=== PATIENT | female | born 1970 | race Caucasian/White ===

== ENCOUNTER 2016-03-17 21:09 | Emergency (ER) | payer BC, OTHER ==
[2016-03-17] MEDS ORDERED: NORCO 5/325 MG PO ONE ×2 (21:34→22:38)
--- NOTE | 2016-03-17 21:40 | ERPHSYRPT ---
- History of Present Illness Time Seen by Provider: 03/17/16 21:27 Source: patient Exam Limitations: no limitations Patient Subjective Stated Complaint: pt states this morning she missed a step going outside and hurt her lt heel. states pain has made it difficult to walk. Triage Nursing Assessment: pt alert and oriented. answers questins approp. repirations nonlabored with lungs cta. skin pink warm and dry. air cast to lt foot on pt's arrival. pt sttes she had it at home from previous injury to her other foot. cap refill and pedal pusle to lt foot wnl. some swelling and tenderness noted to lt heel area. Physician History: ABOUT 11.5 HOURS AGO AT HOME PT WAS WALKING DOWN HER FRONT PORCH, MISSED THE LAST STEP AND STEPPED FLAT ON HER LEFT FOOT WITH RESULTANT LEFT HEEL PAIN; DENIES NUMBNESS OF THE LEFT TOES; ADMITS TO PRIOR LEFT FOOT HAIRLINE FRACTURE 2 YEARS AGO IN THE HEEL OR ARCH. Allergies/Adverse Reactions: No Known Drug Allergies Allergy (Unverified 03/17/16 21:27) Home Medications: Buspirone HCl [Buspar] 30 mg PO BID 03/17/16 [History] Omeprazole 20 MG [Prilosec 20 mg] 40 mg PO BID 03/17/16 [History] Pregabalin [Lyrica 150Mg] 150 mg PO BID 03/17/16 [History] Hx Tetanus, Diphtheria Vaccination/Date Given: Yes Hx Influenza Vaccination/Date Given: Yes Hx Pneumococcal Vaccination/Date Given: Yes Immunizations Up to Date: Yes - Review of Systems Musculoskeletal: Other (LEFT HEEL PAIN) - Past Medical History Musculoskeletal History: Fibromyalgia, Rheumatoid Arthritis Psycho-Social History: Anxiety, Depression Other Medical History: chronic back pain - Past Surgical History Past Surgical History: Yes Musculoskeletal: Orthopedic Surgery Female Surgical History: Hysterectomy Other Surgical History: bilat reconst hand surgery - Social History Smoking Status: Never smoker Exposure to second hand smoke: Yes Drug Use: none Patient Lives Alone: No - Female History Hx Last Menstrual Period: partial hyster - Nursing Vital Signs Nursing Vital Signs: Initial Vital Signs Temperature 97.1 F Temperature Source Oral Pulse Rate 80 Respiratory Rate 18 Blood Pressure [Right Arm] 128/73 Pain Intensity 10 - Physical Exam General Appearance: alert Hips Exam: left: normal range of motion Legs Exam: left leg: normal range of motion Knees Exam: left knee: normal range of motion Ankle Exam: left ankle: normal range of motion Foot Exam: left foot: normal range of motion, soft tissue tenderness (MILD LEFT HEEL TENDERNESS WITH MINIMAL EDEMA WITHOUT ERYTHEMA.) Neuro/Tendon Exam: normal sensation, normal motor functions Mental Status Exam: alert, cooperative Skin Exam: warm, dry SpO2 Interpretation: normal SpO2: 98 Oxygen Delivery: Room Air - Course Nursing assessment & vital signs reviewed: Yes - Radiology Exams Left Foot X-ray Interpretation: Interpreted by me (HAIRLINE FX HEEL SPUR OF LEFT FOOT) Ordered Tests: Active Orders 24 hr Category Date Time Status Crutches STAT Care 03/17/16 21:34 Active FOOT (MINIMUM 3 VIEWS) Stat Exams 03/17/16 21:34 Taken Medication Summary Discontinued Medications Generic Name Dose Route Start Last Admin Trade Name Freq PRN Reason Stop Dose Admin Acetaminophen/Hydrocodone Bitart 2 tab 03/17/16 21:34 03/17/16 21:44 [place] 5/325 Mg PO 03/17/16 21:35 2 tab STAT ONE Administration Acetaminophen/Hydrocodone Bitart Confirm 03/17/16 21:43 [place] 5/325 Mg Administered 03/17/16 21:44 Dose 2 tab .ROUTE .STK-MED ONE - Departure Time of Disposition: 22:37 Departure Disposition: Home Clinical Impression: HAIRLINE FX OF LEFT HEEL SPUR Condition: Fair Critical Care Time: No Instructions: Foot Fracture Additional Instructions: FOLLOW UP WITH MANAGER QA OF CHOICE TOMORROW. USE CRUTCHES FOR AMBULATION. ELEVATE LEFT FOOT ABOVE HEART LEVEL FOR 24 HOURS. Prescriptions: Naproxen [Naprosyn] 500 mg PO Q12H PRN PRN #20 tablet PRN Reason: Pain
[2016-03-17] MEDS ORDERED: NORCO 5/325 MG ONE ×2 (21:43→22:41)
[2016-03-17 22:54] VITALS: BP 143/70; PULSE 70; O2SAT 100
--- NOTE | 2016-03-18 08:41 | XRAY ---
Indication: Heel pain following fall. Comparison: None 3 nonweightbearing views of the left foot demonstrates small plantar heel spur and tiny cuboid accessory ossicle. No other bony, articular, or soft tissue abnormalities.
== END 2016-03-17 22:54 | disposition home or self-care (01) ==
LOC: ED 21:09
DX: M77.32 Calcaneal spur, left foot (principal); M79.672 Pain in left foot; W10.9XXA Fall (on) (from) unspecified stairs and steps, initial encounter
CPT/HCPCS: 73630; 99283

== ENCOUNTER 2017-03-24 12:59 | Emergency (ER) | payer OTHER ==
[2017-03-24] MEDS ORDERED: BENADRYL 50 MG/ML IV ONE (13:19)
[2017-03-24] MEDS ORDERED: Sodium Chloride 0.9% 1000 ML 1,000 ML IV STA (13:19)
[2017-03-24] MEDS ORDERED: Reglan 10 MG/2 ML IV ONE (13:19)
--- NOTE | 2017-03-24 13:24 | ERPHSYRPT ---
- History of Present Illness Time Seen by Provider: 03/24/17 13:11 Source: patient, family () Patient Subjective Stated Complaint: pt here for a headache for 3 days now. pt has hx of headaches Triage Nursing Assessment: pt walked in, resp eay, skin w/d/p. nausea, light sensitive Physician History: CC: headache Hx: 46 y/o [facility] patient with hx of migraine headaches and fibromylagia. She also has mild renal insuff. She noted gradually worsened headache since Friday or Friday (2-3 days) which started while cleaning a smoker's home. Smoke has been a trigger for her migraines in the past. She has nausea but more photophobia. No fever or chills. Neck feels tight. No N/T/W. No injury. Last headache this bad was in 2014. She has tried lotions, APAP without relief. Severity of Pain-Max: severe Severity of Pain-Current: severe Allergies/Adverse Reactions: No Known Drug Allergies Allergy (Verified 03/24/17 13:13) Home Medications: Buspirone HCl [Buspar] 60 mg PO BID 03/17/16 [History] Omeprazole 20 MG [Prilosec 20 mg] 40 mg PO BID 03/17/16 [History] Hx Tetanus, Diphtheria Vaccination/Date Given: Yes Hx Influenza Vaccination/Date Given: Yes Hx Pneumococcal Vaccination/Date Given: Yes Immunizations Up to Date: Yes - Review of Systems Constitutional: No Fever, No Chills Eyes: Photophobia, No Vision Changes Ears, Nose, & Throat: No Symptoms Respiratory: No Symptoms Cardiac: No Symptoms Abdominal/Gastrointestinal: Nausea, No Abdominal Pain, No Vomiting Musculoskeletal: No Back Pain Skin: No Rash Neurological: Headache, No Dizziness, No Focal Weakness, No Parasthesia, No Seizure All Other Systems: Reviewed and Negative - Past Medical History Pertinent Past Medical History: Yes Musculoskeletal History: Fibromyalgia, Rheumatoid Arthritis Psycho-Social History: Anxiety, Depression Other Medical History: chronic back pain - Past Surgical History Past Surgical History: Yes Musculoskeletal: Orthopedic Surgery Female Surgical History: Hysterectomy Other Surgical History: bilat reconst hand surgery - Social History Smoking Status: Never smoker Exposure to second hand smoke: Yes Drug Use: none Patient Lives Alone: No - Female History Hx Last Menstrual Period: post Hx Now: No - Nursing Vital Signs Nursing Vital Signs: Initial Vital Signs Temperature 97.8 F 02/05/18 13:05 Pulse Rate 76 03/24/17 13:05 Respiratory Rate 18 03/24/17 13:05 Blood Pressure 161/101 03/24/17 13:05 O2 Sat by Pulse Oximetry 99 03/24/17 13:05 Pain Scale Pain Intensity 10 - Physical Exam General Appearance: alert Eye Exam: PERRL/EOMI Ears, Nose, Throat Exam: normal ENT inspection, moist mucous membranes Neck Exam: normal inspection, non-tender, supple, No meningismus Respiratory Exam: normal breath sounds, lungs clear Cardiovascular Exam: regular rate/rhythm Gastrointestinal/Abdominal Exam: soft, No tenderness, No distention Extremity Exam: normal inspection, normal range of motion Mental Status Exam: alert, oriented x 3, cooperative veterinarian Exam: normal hearing, normal speech, PERRL Motor/Sensory Exam: no motor deficit, no sensory deficit Skin Exam: warm, dry, No rash SpO2 Interpretation: normal SpO2: 99 Oxygen Delivery: Room Air - Course Nursing assessment & vital signs reviewed: Yes Ordered Tests: Active Orders 24 hr Category Date Time Status IV Insertion STAT Care 03/24/17 13:19 Active Medication Summary Generic Name Dose Route Start Last Admin Trade Name Freq PRN Reason Stop Dose Admin Sodium Chloride 1,000 mls @ 999 mls/hr 03/24/17 13:19 03/24/17 13:40 Sodium Chloride 0.9% 1000 Ml IV 03/24/17 14:19 999 mls/hr .Q1H1M STA Administration Discontinued Medications Generic Name Dose Route Start Last Admin Trade Name Freq PRN Reason Stop Dose Admin Diphenhydramine HCl 25 mg 03/24/17 13:19 03/24/17 13:39 Benadryl 50 Mg/Ml IV 03/24/17 13:20 25 mg STAT ONE Administration Diphenhydramine HCl Confirm 03/24/17 13:38 Benadryl 50 Mg/Ml Administered 03/24/17 13:39 Dose 50 mg .ROUTE .STK-MED ONE Sodium Chloride Confirm 03/24/17 13:39 Sodium Chloride 0.9% 1000 Ml Administered 03/24/17 13:40 Dose 1,000 mls @ ud .ROUTE .STK-MED ONE Metoclopramide HCl 10 mg 03/24/17 13:19 03/24/17 13:39 Reglan 10 Mg/2 Ml IV 03/24/17 13:20 10 mg STAT ONE Administration Metoclopramide HCl Confirm 03/24/17 13:38 Reglan 10 Mg/2 Ml Administered 03/24/17 13:39 Dose 10 mg .ROUTE .STK-MED ONE - Progress Progress Note: 03/24/17 14:15 FOSTER improving after benadryl, reglan, IVF. She is fidgety from her arthritis. She states and is ready to go home. Will release with headache instr. Counseled pt/family regarding: diagnosis, need for follow-up, rad results - Departure Time of Disposition: 14:16 Departure Disposition: Home Clinical Impression: Migraine headache Condition: Stable Critical Care Time: No Referrals: [facility]OSPITAL,'[facility] [Primary Care Provider] - Instructions: Headache, Adult (DC) Additional Instructions: HEADACHE 1. After discharge from the emergency department, you should rest at home in a cool, dark, quiet place for 12-24 hours. 2. If any of the following signs or symptoms are noticed, you should be re- evaluated right away: A. Visual changes B. Stiff Neck C. Change in quality or location of pain D. Fever E. Recurrent vomiting 3. If pain medications were prescribed or given, they may cause drowsiness. No driving today and stay with family. Follow up at [place]. Return for problems or concerns.
[2017-03-24] MEDS ORDERED: Reglan 10 MG/2 ML ONE (13:38)
[2017-03-24] MEDS ORDERED: BENADRYL 50 MG/ML ONE (13:38)
[2017-03-24] MEDS ORDERED: Sodium Chloride 0.9% 1000 ML 1,000 ML ONE (13:39)
[2017-03-24 14:41] VITALS: BP 142/90; PULSE 78; O2SAT 98
== END 2017-03-24 14:41 | disposition home or self-care (01) ==
LOC: ED 12:59
DX: G43.909 Migraine, unspecified, not intractable, without status migrainosus (principal); N28.9 Disorder of kidney and ureter, unspecified
CPT/HCPCS: 36000; 96360; 96374; 96375; 99284; J1200

== ENCOUNTER 2018-02-10 14:53 | Emergency (ER) | payer OTHER ==
[2018-02-10] MEDS ORDERED: Phenergan 25 MG INJ IV ONE (16:19)
[2018-02-10] MEDS ORDERED: Sodium Chloride 0.9% 1000 ML 1,000 ML IV STA (16:19)
--- NOTE | 2018-02-10 16:19 | ERPHSYRPT ---
- History of Present Illness Time Seen by Provider: 02/10/18 16:16 Source: patient Exam Limitations: no limitations Patient Subjective Stated Complaint: here for loose stools for 6 weeks with vomiting off and on as well, having 10 stools a day, vomiting 3-4 times , pt is able to eat pizza last night Triage Nursing Assessment: pt alert, resp easy, skin w/d/p. no edema noted, abd soft tender to left side of abd Physician History: The patient is a 47-year-old female complaining of diarrhea of up to 10-12 who was daily for 6 weeks. For the last week she has been vomiting every time she eats. She denies any weight loss. She's had on and off lightheadedness. She denies abdominal pain. She [facility] and cannot be [facility] until [facility]. She has no local doctor. Her past medical history is significant for GERD and fibromyalgia. Timing/Duration: week(s) (6), constant, sudden Severity: moderate Modifying Factors: Improves With: eating Associated Symptoms: nausea, vomiting, other (diarrhea) Allergies/Adverse Reactions: No Known Drug Allergies Allergy (Verified 02/10/18 15:16) Home Medications: Buspirone HCl [Buspar] 60 mg PO BID 03/17/16 [History] Omeprazole 20 MG [Prilosec 20 mg] 40 mg PO BID 03/17/16 [History] Topiramate 100 mg [Topamax 100 MG] 100 mg DAILY 02/10/18 [History] clonazePAM [Klonopin] 0.5 mg DAILY 02/10/18 [History] Hx Tetanus, Diphtheria Vaccination/Date Given: Yes Hx Influenza Vaccination/Date Given: Yes Hx Pneumococcal Vaccination/Date Given: Yes Immunizations Up to Date: Yes - Review of Systems Constitutional: Weakness Eyes: No Symptoms Ears, Nose, & Throat: No Symptoms Respiratory: No Cough, No Dyspnea Cardiac: No Chest Pain, No Edema, No Syncope Abdominal/Gastrointestinal: Nausea, Vomiting, Diarrhea Genitourinary Symptoms: No Dysuria Musculoskeletal: No Back Pain, No Neck Pain Skin: No Rash Neurological: No Dizziness, No Focal Weakness, No Sensory Changes Psychological: No Symptoms Endocrine: No Symptoms Hematologic/Lymphatic: No Symptoms Immunological/Allergic: No Symptoms All Other Systems: Reviewed and Negative - Past Medical History Pertinent Past Medical History: Yes Musculoskeletal History: Fibromyalgia, Rheumatoid Arthritis GI Medical History: GERD Psycho-Social History: Anxiety, Depression Other Medical History: chronic back pain - Past Surgical History Past Surgical History: Yes Musculoskeletal: Orthopedic Surgery Female Surgical History: Hysterectomy Other Surgical History: bilat reconst hand surgery - Social History Smoking Status: Never smoker Exposure to second hand smoke: No Drug Use: none Patient Lives Alone: No - Female History Hx Last Menstrual Period: 2009 Hx Now: No - Nursing Vital Signs Nursing Vital Signs: Initial Vital Signs Temperature 98.0 F 02/10/18 15:09 Pulse Rate 61 02/10/18 15:09 Respiratory Rate 16 02/10/18 15:09 Blood Pressure 121/76 02/10/18 15:09 O2 Sat by Pulse Oximetry 97 02/10/18 15:09 Pain Scale Pain Intensity 0 - Physical Exam General Appearance: no apparent distress, alert Eye Exam: PERRL/EOMI, eyes nml inspection Ears, Nose, Throat Exam: normal ENT inspection, TMs normal, pharynx normal, moist mucous membranes Neck Exam: normal inspection, non-tender, supple, full range of motion Respiratory Exam: normal breath sounds, lungs clear, No respiratory distress Cardiovascular Exam: regular rate/rhythm, normal heart sounds, normal peripheral pulses Gastrointestinal/Abdomen Exam: soft, other (hyperactive BS) Pelvic Exam: not done Rectal Exam: not done Back Exam: normal inspection, normal range of motion, No CVA tenderness, No vertebral tenderness Extremity Exam: normal inspection, normal range of motion, pelvis stable Neurologic Exam: alert, oriented x 3, cooperative, normal mood/affect, nml cerebellar function, nml station & gait, sensation nml, No motor deficits Skin Exam: normal color, warm, dry, No rash Lymphatic Exam: No adenopathy SpO2 Interpretation: normal SpO2: 98 Oxygen Delivery: Room Air Ordered Tests: Active Orders 24 hr Category Date Time Status Clean Catch Urine Specimen STAT Care 02/10/18 16:19 Active IV Insertion STAT Care 02/10/18 16:19 Active Orthostatic Vital Signs STAT Care 02/10/18 16:19 Active ABDOMEN AND PELVIS W/0 CONTRAS [CT] Stat Exams 02/10/18 16:20 Taken BLOOD CULTURE Stat Lab 02/10/18 17:18 Ordered CBC W DIFF Stat Lab 02/10/18 16:30 Completed CMP Stat Lab 02/10/18 16:30 Completed LIPASE Stat Lab 02/10/18 16:30 Completed Lactic Acid Stat Lab 02/10/18 17:02 Completed Occult Blood,Stool Other Stat Lab 02/10/18 16:32 Completed UA W/RFX UR CULTURE Stat Lab 02/10/18 17:10 Completed Medication Summary Discontinued Medications Generic Name Dose Route Start Last Admin Trade Name Bernie PRN Reason Stop Dose Admin Sodium Chloride 1,000 mls @ 999 mls/hr 02/10/18 16:19 02/10/18 17:14 Sodium Chloride 0.9% 1000 Ml IV 02/10/18 17:19 999 mls/hr .Q1H1M STA Administration Sodium Chloride Confirm 02/10/18 17:07 Sodium Chloride 0.9% 1000 Ml Administered 02/10/18 17:08 Dose 1,000 mls @ ud .ROUTE .STK-MED ONE Promethazine HCl 12.5 mg 02/10/18 16:19 02/10/18 17:13 Phenergan 25 Mg Inj IV 02/10/18 16:20 12.5 mg STAT ONE Administration Promethazine HCl Confirm 02/10/18 17:07 Phenergan 25 Mg Inj Administered 02/10/18 17:08 Dose 25 mg .ROUTE .STK-MED ONE Lab/Rad Data: Laboratory Result Diagrams 02/10/18 16:30 02/10/18 16:30 Laboratory Results 02/10/18 02/10/18 02/10/18 Range/Units 17:10 17:08 17:02 WBC (4.0-10.5) K/mm3 RBC (4.1-5.4) M/mm3 Hgb (12.0-16.0) gm/dl Hct (35-47) % MCV (78-100) fl MCH (26-32) pg MCHC (32-36) g/dl RDW (11.5-14.0) % Plt Count (150-450) K/mm3 MPV (6-9.5) fl Gran % (36.0-66.0) % Eos # (Auto) (0-0.5) Absolute Lymphs (auto) (1.0-4.6) Absolute Monos (auto) (0.0-1.3) Lymphocytes % (24.0-44.0) % Monocytes % (0.0-12.0) % Eosinophils % (0.00-5.0) % Basophils % (0.0-0.4) % Absolute Granulocytes (1.4-6.9) Basophils # (0-0.4) Sodium (137-145) mmol/L Potassium (3.5-5.1) mmol/L Chloride (98-107) mmol/L Carbon Dioxide (22-30) mmol/L Anion Gap (5-15) MEQ/L BUN (7-17) mg/dL Creatinine (0.52-1.04) mg/dL Estimated GFR ML/MIN Glucose (74-106) mg/dL Lactic Acid 1.2 (0.4-2.0) Calcium (8.4-10.2) mg/dL Total Bilirubin (0.2-1.3) mg/dL AST (14-36) U/L ALT (0-35) U/L Alkaline Phosphatase (38-126) U/L Serum Total Protein (6.3-8.2) g/dL Albumin (3.5-5.0) g/dL Lipase (23-300) U/L Urine Color YELLOW (YELLOW) Urine Appearance SLIGHTLY CLOUDY (CLEAR) Urine pH 7.0 (5-6) Ur Specific [place] 1.015 (1.005-1.025) Urine Protein NEGATIVE (Negative) Urine Ketones NEGATIVE (NEGATIVE) Urine Blood NEGATIVE (0-5) Vasquez/ul Urine Nitrite NEGATIVE (NEGATIVE) Urine Bilirubin NEGATIVE (NEGATIVE) Urine Urobilinogen NEGATIVE (0-1) mg/dL Ur Leukocyte Esterase NEGATIVE (NEGATIVE) Urine WBC (Auto) 0-2 (0-5) /HPF Urine RBC (Auto) NONE (0-2) /HPF U Epithel Cells (Auto) RARE (FEW) /HPF Urine Bacteria (Auto) RARE (NEGATIVE) /HPF Other Casts (Auto) NEGATIVE (NEGATIVE) /LPF Urine Mucus (Auto) SLIGHT (NEGATIVE) /HPF Urine Culture Reflexed NO (NO) Urine Glucose NEGATIVE (NEGATIVE) mg/dL Stool Occult Blood (Negative) Stl C. diff Tox B Gene NEGATIVE (NEGATIVE) C.difficile 027-[id number] PRESUMPTIVE NEGATIVE (NEGATIVE) 02/10/18 02/10/18 02/10/18 Range/Units 16:32 16:30 16:30 WBC 8.7 (4.0-10.5) K/mm3 RBC 5.42 H (4.1-5.4) M/mm3 Hgb 14.8 (12.0-16.0) gm/dl Hct 46.9 (35-47) % MCV 86.5 (78-100) fl MCH 27.3 (26-32) pg MCHC 31.6 L (32-36) g/dl RDW 14.7 H (11.5-14.0) % Plt Count 236 (150-450) K/mm3 MPV 10.8 H (6-9.5) fl Gran % 63.5 (36.0-66.0) % Eos # (Auto) 0.15 (0-0.5) Absolute Lymphs (auto) 2.27 (1.0-4.6) Absolute Monos (auto) 0.74 (0.0-1.3) Lymphocytes % 26.1 (24.0-44.0) % Monocytes % 8.5 (0.0-12.0) % Eosinophils % 1.7 (0.00-5.0) % Basophils % 0.2 (0.0-0.4) % Absolute Granulocytes 5.52 (1.4-6.9) Basophils # 0.02 (0-0.4) Sodium 144 (137-145) mmol/L Potassium 4.7 (3.5-5.1) mmol/L Chloride 107 (98-107) mmol/L Carbon Dioxide 26 (22-30) mmol/L Anion Gap 15.3 H (5-15) MEQ/L BUN 9 (7-17) mg/dL Creatinine 1.11 H (0.52-1.04) mg/dL Estimated GFR 55.8 ML/MIN Glucose 96 (74-106) mg/dL Lactic Acid (0.4-2.0) Calcium 9.3 (8.4-10.2) mg/dL Total Bilirubin 0.30 (0.2-1.3) mg/dL AST 25 (14-36) U/L ALT 21 (0-35) U/L Alkaline Phosphatase 74 (38-126) U/L Serum Total Protein 7.8 (6.3-8.2) g/dL Albumin 4.5 (3.5-5.0) g/dL Lipase 55 (23-300) U/L Urine Color (YELLOW) Urine Appearance (CLEAR) Urine pH (5-6) Ur Specific [place] (1.005-1.025) Urine Protein (Negative) Urine Ketones (NEGATIVE) Urine Blood (0-5) Vasquez/ul Urine Nitrite (NEGATIVE) Urine Bilirubin (NEGATIVE) Urine Urobilinogen (0-1) mg/dL Ur Leukocyte Esterase (NEGATIVE) Urine WBC (Auto) (0-5) /HPF Urine RBC (Auto) (0-2) /HPF U Epithel Cells (Auto) (FEW) /HPF Urine Bacteria (Auto) (NEGATIVE) /HPF Other Casts (Auto) (NEGATIVE) /LPF Urine Mucus (Auto) (NEGATIVE) /HPF Urine Culture Reflexed (NO) Urine Glucose (NEGATIVE) mg/dL Stool Occult Blood NEGATIVE (Negative) Stl C. diff Tox B Gene (NEGATIVE) C.difficile 027-NAP1-B1 (NEGATIVE) - Progress Progress: improved Progress Note: 02/10/18 18:[address] findings with Dr Long, surgeon, at [facility] in [facility]. Accepts pt. Counseled pt/family regarding: lab results, diagnosis, rad results - Departure Time of Disposition: 18:32 Departure Disposition: Transfer (transfer to [facility] per Dr Long.) Clinical Impression: Acute appendicitis Condition: Stable Critical Care Time: No Referrals: [facility]OSPITAL,'[facility] [Primary Care Provider] -
[2018-02-10 16:39] LABS: BASOPHIL % 0.2 % (0.0-0.4); Basophil (Absolute #) 0.02 (0-0.4); Eosinophil % 1.7 % (0.00-5.0); Eosinophil (Absolute #) 0.15 (0-0.5); Granulocyte Absolute (ANC) 5.52 (1.4-6.9); Granulocytes % 63.5 % (36.0-66.0); Hematocrit 46.9 % (35-47); Hemoglobin 14.8 gm/dl (12.0-16.0); Lymphocyte (Absolute #) 2.27 (1.0-4.6); Lymphocytes % 26.1 % (24.0-44.0); Mean Cell Volume 86.5 fl (78-100); Mean Corpuscular Hemoglobin 27.3 pg (26-32); Mean Corpuscular Hgb Concent. 31.6 g/dl (32-36); Mean Platelet Volume 10.8 fl (6-9.5); Monocyte (Absolute #) 0.74 (0.0-1.3); Monocytes % 8.5 % (0.0-12.0); Platelet Count 236 K/mm3 (150-450); Red Blood Count 5.42 M/mm3 (4.1-5.4); Red Cell Distribution Width 14.7 % (11.5-14.0); White Blood Count 8.7 K/mm3 (4.0-10.5)
[2018-02-10 16:53] LABS: ALBUMIN 4.5 g/dL (3.5-5.0); ANION GAP 15.3 MEQ/L (5-15); BILIRUBIN,TOTAL 0.3 mg/dL (0.2-1.3); Calcium 9.3 mg/dL (8.4-10.2); Creatinine 1 1.11 mg/dL (0.52-1.04); Potassium 4.7 mmol/L (3.5-5.1); Total Protein 7.8 g/dL (6.3-8.2)
[2018-02-10] MEDS ORDERED: Sodium Chloride 0.9% 1000 ML 1,000 ML ONE (17:07)
[2018-02-10] MEDS ORDERED: Phenergan 25 MG INJ ONE (17:07)
[2018-02-10 17:23] LABS: Appearance SLIGHTLY CLOUDY (CLEAR); Bilirubin NEGATIVE (NEGATIVE); Blood NEGATIVE Ery/ul (0-5); Glucose NEGATIVE (NEGATIVE); Ketones NEGATIVE (NEGATIVE); Leukocyte Esterase NEGATIVE (NEGATIVE); Nitrite NEGATIVE (NEGATIVE); Protein,Urine Dip NEGATIVE (Negative); Specific Gravity 1.015 (1.005-1.025); Urobilinogen NEGATIVE mg/dL (0-1)
[2018-02-10 18:01] LABS: 027 TOX PROD PRESUMPTIVE NEGATIVE (NEGATIVE); TOXIGENIC C. DIFF ORG NEGATIVE (NEGATIVE)
[2018-02-10] MEDS ORDERED: ROCEPHIN 1 Gm-D5w 50 ml Bag** 1 G/50 ML IVPB IV STA (18:34)
[2018-02-10] MEDS ORDERED: ROCEPHIN 1 Gm-D5w 50 ml Bag** 1 G/50 ML IVPB IV ONE (18:57)
[2018-02-10 19:03] VITALS: BP 130/87; PULSE 60; O2SAT 99
--- NOTE | 2018-02-10 21:10 | XRAY ---
Indication: Vomiting and diarrhea. Multiple contiguous axial images obtained through the abdomen and pelvis without contrast as ordered. Comparison: None. Lung bases demonstrate left base fibrosis/scarring. No infiltrate or effusion. Heart is not enlarged. Stomach is markedly distended with food/fluid. Noncontrasted bowel loops appear nonobstructed. Abnormal appendix appears enlarged up to 16 mm diameter with appendicolith and periappendiceal stranding favoring acute appendicitis. No free fluid/air. Previous hysterectomy. Remaining liver, gallbladder, spleen, adrenal glands, kidneys, ureters, bladder, and aorta appear unremarkable for noncontrast exam. Osseous structures intact. No ventral or inguinal hernias. Impression: 1. Appendicolith with CT findings favoring acute appendicitis. No complications. 2. Remaining CT abdomen/pelvis without contrast exam is negative. Comment: Preliminary interpretation was made by C. No discrepancy. CTDI 22.37
[2018-02-12 11:23] LABS: Source: Feces
== END 2018-02-10 20:01 | disposition short-term general hospital (02) ==
LOC: ED 14:53
DX: K35.80 Unspecified acute appendicitis (principal); R19.7 Diarrhea, unspecified; R11.2 Nausea with vomiting, unspecified; R42 Dizziness and giddiness; Z79.899 Other long term (current) drug therapy
CPT/HCPCS: 36000; 36415; 74176; 80053; 81001; 82272; 83605; 83690; 85025; 87040; 87077; 87177; 87186; 87209; 87493; 96360; 96365; 96374; 99285; J0696; J2550

== ENCOUNTER 2018-05-22 17:34 | Emergency (ER) | payer OTHER ==
--- NOTE | 2018-05-22 18:06 | ERPHSYRPT ---
- History of Present Illness Time Seen by Provider: 05/22/18 17:57 Source: patient Exam Limitations: no limitations Patient Subjective Stated Complaint: Pt states "I am having blackouts. The last one I had was Friday. I called the [facility] and waited for my to call back and I just spoke with them about 40 minutes ago and they told me to come to the ED." Triage Nursing Assessment: Pt presented alert and oriented X 3, skin pwd. PT able to speak in clear full sentences. PT in no apparent respiratory distress. PT has slight headache and pain in her neck. Physician History: 47-year-old white female with history of GERD, high blood pressure, fibromyalgia , rheumatoid arthritis, anxiety, depression, chronic back pain Patient arrives with complaints of blacking out spells that she states that she had blackout spells which started a year ago, lasted a few months and went away then 1 month ago she began having blackout spells every several days. She states that her last blackout spell was 5 days ago. She states when she has these she suddenly begins to feel kind of foggy dizzy and then passes out she states that she can sit down quick enough it goes away. Patient states that she called the [facility] to tell them about or blackouts and they told her she should come to the emergency room. She has not had any blackout spells for 5 days. Patient does not have any fevers shortness of breath or chest pain. Past medical history includes GERD, high blood pressure, fibromyalgia, rheumatoid arthritis, anxiety, depression, chronic back pain. Past surgical history includes hysterectomy, orthopedic surgery bilateral hand surgery, partial hysterectomy Social history patient denies tobacco alcohol or illicit drug use Timing/Duration: other (symptoms for a year last occurred 5 days ago) Severity: moderate Modifying Factors: Improves With: nothing Associated Symptoms: syncope, No nausea, No vomiting, No abdominal pain, No shortness of breath, No heartburn, No diaphoresis, No cough, No chills, No chest pain, No fever, No headaches, No loss of appetite, No malaise, No rash, No seizure, No weakness Allergies/Adverse Reactions: No Known Drug Allergies Allergy (Verified 02/10/18 15:16) Home Medications: Buspirone HCl [Buspar] 60 mg PO BID 03/17/16 [History] Topiramate 100 mg [Topamax 100 MG] 100 mg DAILY 02/10/18 [History] clonazePAM [Klonopin] 0.5 mg DAILY 02/10/18 [History] Lansoprazole [Prevacid] 15 mg PO BID 05/22/18 [History] Hx Tetanus, Diphtheria Vaccination/Date Given: Yes Hx Influenza Vaccination/Date Given: Yes Hx Pneumococcal Vaccination/Date Given: Yes Immunizations Up to Date: Yes - Review of Systems Constitutional: No Fever, No Chills Eyes: No Symptoms Ears, Nose, & Throat: No Symptoms Respiratory: No Cough, No Dyspnea Cardiac: Syncope, No Chest Pain, No Edema Abdominal/Gastrointestinal: No Abdominal Pain, No Nausea, No Vomiting, No Diarrhea Genitourinary Symptoms: No Dysuria Musculoskeletal: No No Symptoms, No Back Pain, No Neck Pain Skin: No Symptoms, No Rash Neurological: Other (multiple syncopal episodes), No No Symptoms, No Dizziness, No Focal Weakness, No Gait Changes, No Headache, No Irritability, No Lethargy, No Paralysis, No Parasthesia, No Seizure, No Sensory Changes, No Speech Changes , No Tics, No Tremors, No Vertigo Psychological: No Symptoms Endocrine: No Symptoms All Other Systems: Reviewed and Negative - Past Medical History Pertinent Past Medical History: Yes Neurological History: Other ENT History: No Pertinent History Cardiac History: Hypertension Respiratory History: No Pertinent History Endocrine Medical History: No Pertinent History Musculoskeletal History: Fibromyalgia, Rheumatoid Arthritis, Other GI Medical History: GERD History: No Pertinent History Psycho-Social History: Anxiety, Depression Female Reproductive Disorders: No Pertinent History Other Medical History: chronic back pain - Past Surgical History Past Surgical History: Yes Musculoskeletal: Orthopedic Surgery Female Surgical History: Hysterectomy Other Surgical History: bilat reconst hand surgery. partial hysterectomy, uterus removed - Social History Smoking Status: Never smoker Exposure to second hand smoke: No Drug Use: none Patient Lives Alone: No - Female History Hx Last Menstrual Period: no uterus Hx Now: No - Nursing Vital Signs Nursing Vital Signs: Initial Vital Signs Temperature 99.1 F 05/22/18 17:41 Pulse Rate 58 L 05/22/18 17:41 Respiratory Rate 16 05/22/18 17:41 Blood Pressure 148/96 05/22/18 17:41 O2 Sat by Pulse Oximetry 99 05/22/18 17:41 Pain Scale Pain Intensity 0 - Physical Exam General Appearance: no apparent distress, alert Eye Exam: PERRL/EOMI, eyes nml inspection Ears, Nose, Throat Exam: normal ENT inspection, TMs normal, pharynx normal, moist mucous membranes Neck Exam: normal inspection, non-tender, supple, full range of motion Respiratory Exam: normal breath sounds, lungs clear, No respiratory distress Cardiovascular Exam: regular rate/rhythm, normal heart sounds, normal peripheral pulses, capillary refill <2 sec Gastrointestinal/Abdomen Exam: soft, normal bowel sounds, No tenderness, No mass Back Exam: normal inspection, normal range of motion, No CVA tenderness, No vertebral tenderness Extremity Exam: normal inspection, normal range of motion, pelvis stable Neurologic Exam: alert, oriented x 3, cooperative, damper worker II-XII nml as tested, normal mood/affect, nml cerebellar function, nml station & gait, sensation nml, No motor deficits Skin Exam: normal color, warm, dry, No rash Lymphatic Exam: No adenopathy SpO2 Interpretation: normal (99%) SpO2: 99 - Course Nursing assessment & vital signs reviewed: Yes EKG Interpreted by Me: RATE (50 bpm), Sinus Rhythm, NORMAL AXIS, Other (EKG: Sinus rhythm, 50 bpm, normal axis, isolated T waveinversion V2 V3) - CT Exams Head CT Interpretation: Discussed w/radiologist (head CT: Normal head CT) Ordered Tests: Active Orders 24 hr Category Date Time Status Personnel Director STAT Care 05/22/18 18:07 Active EKG-ER Only STAT Care 05/22/18 18:06 Active IV Insertion STAT Care 05/22/18 18:06 Active Orthostatic Vital Signs STAT Care 05/22/18 18:06 Active HEAD WITHOUT CONTRAST [CT] Stat Exams 05/22/18 18:22 Taken CBC W DIFF Stat Lab 05/22/18 18:26 Completed CK-Creatinine Phosphokinase Stat Lab 05/22/18 19:50 Ordered CMP Stat Lab 05/22/18 18:26 Completed ETHYL ALCOHOL Stat Lab 05/22/18 18:26 Completed TROPONIN Q3H Lab 05/22/18 20:00 Ordered TROPONIN Q3H Lab 05/22/18 23:00 Ordered TROPONIN Q3H Lab 05/23/18 02:00 Ordered TROPONIN Q3H Lab 05/23/18 05:00 Ordered TROPONIN Q3H Lab 05/23/18 08:00 Ordered Medication Summary Generic Name Dose Route Start Last Admin Trade Name Brenie PRN Reason Stop Dose Admin Sodium Chloride 1,000 mls @ 100 mls/hr 05/22/18 18:15 05/22/18 18:59 Sodium Chloride 0.9% 1000 Ml IV 06/21/18 18:14 100 mls/hr .Q10H DEBORA Administration Lab/Rad Data: Laboratory Result Diagrams 05/22/18 18:26 05/22/18 18:26 Laboratory Results 05/22/18 05/22/18 Range/Units 18:26 18:26 WBC 7.0 (4.0-10.5) K/mm3 RBC 5.16 (4.1-5.4) M/mm3 Hgb 13.9 (12.0-16.0) gm/dl Hct 42.7 (35-47) % MCV 82.8 (78-100) fl MCH 26.9 (26-32) pg MCHC 32.6 (32-36) g/dl RDW 14.9 H (11.5-14.0) % Plt Count 395 (150-450) K/mm3 MPV 9.7 H (6-9.5) fl Gran % 58.7 (36.0-66.0) % Eos # (Auto) 0.14 (0-0.5) Absolute Lymphs (auto) 2.21 (1.0-4.6) Absolute Monos (auto) 0.51 (0.0-1.3) Lymphocytes % 31.7 (24.0-44.0) % Monocytes % 7.3 (0.0-12.0) % Eosinophils % 2.0 (0.00-5.0) % Basophils % 0.3 (0.0-0.4) % Absolute Granulocytes 4.09 (1.4-6.9) Basophils # 0.02 (0-0.4) Sodium 141 (137-145) mmol/L Potassium 4.3 (3.5-5.1) mmol/L Chloride 108 H (98-107) mmol/L Carbon Dioxide 22 (22-30) mmol/L Anion Gap 14.8 (5-15) MEQ/L BUN 7 (7-17) mg/dL Creatinine 1.01 (0.52-1.04) mg/dL Estimated GFR > 60.0 ML/MIN Glucose 112 H (74-106) mg/dL Calcium 9.6 (8.4-10.2) mg/dL Total Bilirubin 0.30 (0.2-1.3) mg/dL AST 23 (14-36) U/L ALT 23 (0-35) U/L Alkaline Phosphatase 69 (38-126) U/L Serum Total Protein 7.7 (6.3-8.2) g/dL Albumin 4.4 (3.5-5.0) g/dL Ethyl Alcohol < 10 (0-10) mg/dL - Progress Progress: improved Progress Note: 05/22/18 19:51 This is a 47-year-old white female who arrives with complaint of syncopal episodes which have been going on for a year she has a history of GERD high blood pressure fibromyalgia and rheumatoid arthritis anxiety and depression as well as chronic back pain. She states that she had syncopal episodes approximately one year ago he went away after several months she states the last several months that they have began again and she has had syncopal episodes every other day she states that she had the last syncopal episode 5 days ago she is not having chest pain shortness breath she is not otherwise ill. She states she feels dizzy before she passes out. Patient with EKG which shows sinus bradycardia 50 bpm normal axis there is isolated T-wave inversion in V2 V3 with no old EKG for comparison patient's head CT is normal patient's labs essentially normal. Will plan to discharge patient after CK and troponin have been reviewed. Impression syncope. Plan return home plenty of fluids no driving no hazardous activity follow-up with the [facility]. Return for acute distress or for severe symptoms. - Departure Departure Disposition: Home Clinical Impression: Syncope Qualifiers: Syncope type: unspecified Qualified Code(s): R55 - Syncope and collapse Condition: Fair Critical Care Time: No Referrals: [facility] [Primary Care Provider] - Additional Instructions: Return home plenty of fluids. No hazardous activity. No driving. Take showers instead of baths. Do not engage in any activity which might harm herself or others. Follow-up with [facility]. Return for acute distress or for severe symptoms.
[2018-05-22] MEDS ORDERED: Sodium Chloride 0.9% 1000 ML 1,000 ML IV SCH (18:15)
[2018-05-22 18:35] LABS: BASOPHIL % 0.3 % (0.0-0.4); Basophil (Absolute #) 0.02 (0-0.4); Eosinophil (Absolute #) 0.14 (0-0.5); Granulocyte Absolute (ANC) 4.09 (1.4-6.9); Granulocytes % 58.7 % (36.0-66.0); Hematocrit 42.7 % (35-47); Hemoglobin 13.9 gm/dl (12.0-16.0); Lymphocyte (Absolute #) 2.21 (1.0-4.6); Lymphocytes % 31.7 % (24.0-44.0); Mean Cell Volume 82.8 fl (78-100); Mean Corpuscular Hemoglobin 26.9 pg (26-32); Mean Corpuscular Hgb Concent. 32.6 g/dl (32-36); Mean Platelet Volume 9.7 fl (6-9.5); Monocyte (Absolute #) 0.51 (0.0-1.3); Monocytes % 7.3 % (0.0-12.0); Platelet Count 395 K/mm3 (150-450); Red Blood Count 5.16 M/mm3 (4.1-5.4); Red Cell Distribution Width 14.9 % (11.5-14.0)
[2018-05-22 18:50] LABS: ALBUMIN 4.4 g/dL (3.5-5.0); ALKALINE PHOSPHATASE 69 U/L (38-126); ANION GAP 14.8 MEQ/L (5-15); BLOOD UREA NITROGEN 7 mg/dL (7-17); CHLORIDE 108 mmol/L (98-107); Calcium 9.6 mg/dL (8.4-10.2); Carbon Dioxide 22 mmol/L (22-30); Creatinine 1 1.01 mg/dL (0.52-1.04); Glucose 112 mg/dL (74-106); Potassium 4.3 mmol/L (3.5-5.1); SGOT/AST 23 U/L (14-36); SGPT/ALT 23 U/L (0-35); SODIUM 141 mmol/L (137-145); Total Protein 7.7 g/dL (6.3-8.2)
[2018-05-22 18:51] LABS: ETHYL ALCOHOL < 10 mg/dL (0-10)
[2018-05-22] MEDS ORDERED: Sodium Chloride 0.9% 1000 ML 1,000 ML ONE (18:57)
[2018-05-22 20:43] VITALS: BP 151/77; PULSE 60; O2SAT 98
--- NOTE | 2018-05-23 07:35 | XRAY ---
Indication: Syncope. Multiple falls with head injuries. Blurred vision. Multiple contiguous axial images obtained through the head without contrast. Comparison: None Normal appearing brain parenchyma, ventricles, and bony calvarium. Visualized paranasal sinuses and mastoid air cells are clear. Impression: Normal CT head without contrast exam. CTDI 51.90
== END 2018-05-22 20:45 | disposition home or self-care (01) ==
LOC: ED 17:34
DX: R55 Syncope and collapse (principal); I10 Essential (primary) hypertension; F41.8 Other specified anxiety disorders; K21.9 Gastro-esophageal reflux disease without esophagitis; M06.9 Rheumatoid arthritis, unspecified
CPT/HCPCS: 36000; 36415; 70450; 80053; 82550; 84484; 85025; 93005; 93041; 96360; 99284; G0480; 80307

== ENCOUNTER 2019-12-17 07:47 | Emergency (ER) | payer OTHER ==
--- NOTE | 2019-12-17 07:49 | ERPHSYRPT ---
- History of Present Illness Time Seen by Provider: 12/17/19 07:49 Source: patient, family Exam Limitations: no limitations Physician History: This is a morbidly obese 49-year-old white female who has a history of irritable bowel syndrome and has been experiencing diarrhea intermittently for the last 3 weeks. Patient is concerned she might be dehydrated. She is also had associated intermittent vomiting. [facility] Patient has crampy abdominal pain and this is unusual for her. She has no chest pain she has no shortness of breath she is not on any antibiotic therapy. She has no cough and she has no fever. Patient has a history of migraine headaches, anxiety and gastroesophageal reflux disease as well as the irritable bowel syndrome. Severity: mild Associated Symptoms: nausea, vomiting, abdominal pain, other (Diarrhea), No shortness of breath, No chest pain Allergies/Adverse Reactions: No Known Drug Allergies Allergy (Verified 12/17/19 08:01) Home Medications: Buspirone HCl [Buspar] 60 mg PO BID 03/17/16 [History] Topiramate 100 mg [Topamax 100 MG] 100 mg DAILY 02/10/18 [History] clonazePAM [Klonopin] 0.5 mg DAILY 02/10/18 [History] Lansoprazole [Prevacid] 15 mg PO BID 05/22/18 [History] Hx Tetanus, Diphtheria Vaccination/Date Given: Yes Hx Influenza Vaccination/Date Given: Yes Hx Pneumococcal Vaccination/Date Given: Yes Travel Risk - International Travel Have you traveled outside of the country in past 3 weeks: No - Coronavirus Screening Are you exhibiting any of the following symptoms?: Yes Symptoms: Vomiting/Diarrhea Close contact with a COVID-19 positive Pt in past 14-21 Days: No - Review of Systems Constitutional: No Symptoms Eyes: No Symptoms Ears, Nose, & Throat: No Symptoms Respiratory: No Symptoms Cardiac: No Symptoms Abdominal/Gastrointestinal: Abdominal Pain, Nausea, Vomiting, Diarrhea Genitourinary Symptoms: No Symptoms Musculoskeletal: No Symptoms Skin: No Symptoms Neurological: No Symptoms Psychological: No Symptoms Endocrine: No Symptoms Hematologic/Lymphatic: No Symptoms Immunological/Allergic: No Symptoms All Other Systems: Reviewed and Negative - Past Medical History Pertinent Past Medical History: Yes Neurological History: Other ENT History: No Pertinent History Cardiac History: Hypertension Respiratory History: No Pertinent History Endocrine Medical History: No Pertinent History Musculoskeletal History: Fibromyalgia, Rheumatoid Arthritis, Other GI Medical History: GERD History: No Pertinent History Psycho-Social History: Anxiety, Depression Female Reproductive Disorders: No Pertinent History Other Medical History: chronic back pain - Past Surgical History Past Surgical History: Yes Musculoskeletal: Orthopedic Surgery Female Surgical History: Hysterectomy Other Surgical History: bilat reconst hand surgery. partial hysterectomy, uterus removed - Social History Smoking Status: Never smoker Exposure to second hand smoke: No Drug Use: none Patient Lives Alone: No - Nursing Vital Signs Nursing Vital Signs: Initial Vital Signs Temperature 97.6 F 12/17/19 08:03 Pulse Rate 72 12/17/19 08:03 Respiratory Rate 19 12/17/19 08:03 Blood Pressure 116/73 12/17/19 08:03 O2 Sat by Pulse Oximetry 98 12/17/19 08:03 Pain Scale Pain Intensity 4 - Physical Exam General Appearance: no apparent distress, alert, anxiety, obese Eye Exam: PERRL/EOMI, eyes nml inspection Ears, Nose, Throat Exam: normal ENT inspection, moist mucous membranes Neck Exam: normal inspection, non-tender, supple, full range of motion Respiratory Exam: normal breath sounds, lungs clear, airway intact, No chest tenderness, No respiratory distress Cardiovascular Exam: regular rate/rhythm, normal heart sounds, No normal peripheral pulses Gastrointestinal/Abdomen Exam: soft, normal bowel sounds, tenderness (Use mild), No guarding, No rebound Pelvic Exam: not done Rectal Exam: not done Back Exam: normal inspection, normal range of motion, No CVA tenderness, No vertebral tenderness Extremity Exam: normal inspection, normal range of motion, pelvis stable Neurologic Exam: alert, oriented x 3, cooperative, transformation analyst II-XII nml as tested, normal mood/affect, nml cerebellar function, nml station & gait, sensation nml Skin Exam: normal color, warm, dry Lymphatic Exam: No adenopathy SpO2 Interpretation: normal O2 Delivery: Room Air - Course Nursing assessment & vital signs reviewed: Yes Ordered Tests: Active Orders 24 hr Category Date Time Status IV Insertion STAT Care 12/17/19 08:09 Active ABDOMEN AND PELVIS W/0 CONTRAS [CT] Stat Exams 12/17/19 08:09 Completed AMYLASE Stat Lab 12/17/19 08:25 Completed CBC W DIFF Stat Lab 12/17/19 08:25 Completed CMP Stat Lab 12/17/19 08:25 Completed LIPASE Stat Lab 12/17/19 08:25 Completed Lactic Acid Stat Lab 12/17/19 08:09 Ordered Manual Differential NC Stat Lab 12/17/19 08:25 Completed UA W/RFX UR CULTURE Stat Lab 12/17/19 08:11 Completed Medication Summary Discontinued Medications Generic Name Dose Route Start Last Admin Trade Name Bernie PRN Reason Stop Dose Admin Sodium Chloride 1,000 mls @ 999 mls/hr 12/17/19 08:09 12/17/19 08:31 Sodium Chloride 0.9% 1000 Ml IV 12/17/19 09:09 999 mls/hr .Q1H1M STA Administration Sodium Chloride Confirm 12/17/19 08:25 Sodium Chloride 0.9% 1000 Ml Administered 12/17/19 08:26 Dose 1,000 mls @ ud .ROUTE .STK-MED ONE Ondansetron HCl 4 mg 12/17/19 08:09 12/17/19 08:31 Zofran 4 Mg/2 Ml Vial IV 12/17/19 08:10 4 mg STAT ONE Administration Ondansetron HCl Confirm 12/17/19 08:25 Zofran 4 Mg/2 Ml Vial Administered 12/17/19 08:26 Dose 4 mg .ROUTE .STK-MED ONE Lab/Rad Data: Laboratory Result Diagrams 12/17/19 08:25 12/17/19 08:25 Laboratory Results 12/17/19 12/17/19 12/17/19 Range/Units 08:25 08:25 08:11 WBC 9.2 (4.0-10.5) K/mm3 RBC 5.78 H (4.1-5.4) M/mm3 Hgb 15.1 (12.0-16.0) gm/dl Hct 48.2 H (35-47) % MCV 83.4 (78-100) fl MCH 26.1 (26-32) pg MCHC 31.3 L (32-36) g/dl RDW 16.8 H (11.5-14.0) % Plt Count 454 H (150-450) K/mm3 MPV 9.4 (7.5-11.0) fl Gran % 65.0 (36.0-66.0) % Eos # (Auto) 0.12 (0-0.5) Absolute Lymphs (auto) 2.43 (1.0-4.6) Absolute Monos (auto) 0.62 (0.0-1.3) Lymphocytes % 26.5 (24.0-44.0) % Monocytes % 6.8 (0.0-12.0) % Eosinophils % 1.3 (0.00-5.0) % Basophils % 0.4 (0.0-0.4) % Absolute Granulocytes 5.96 (1.4-6.9) Basophils # 0.04 (0-0.4) Morphology Comment Sodium 136 L (137-145) mmol/L Potassium 3.4 L (3.5-5.1) mmol/L Chloride 100 (98-107) mmol/L Carbon Dioxide 29 (22-30) mmol/L Anion Gap 9.4 (5-15) MEQ/L BUN 10 (7-17) mg/dL Creatinine 0.95 (0.52-1.04) mg/dL Estimated GFR > 60.0 ML/MIN Glucose 121 H (74-106) mg/dL Calcium 8.7 (8.4-10.2) mg/dL Total Bilirubin 0.50 (0.2-1.3) mg/dL AST 32 (14-36) U/L ALT 27 (0-35) U/L Alkaline Phosphatase 73 (38-126) U/L Serum Total Protein 7.2 (6.3-8.2) g/dL Albumin 4.2 (3.5-5.0) g/dL Amylase 38 (30-110) U/L Lipase 72 (23-300) U/L Urine Color YELLOW (YELLOW) Urine Appearance SLIGHTLY CLOUDY (CLEAR) Urine pH 7.0 (5-6) Ur Specific [place] 1.017 (1.005-1.025) Urine Protein NEGATIVE (Negative) Urine Ketones NEGATIVE (NEGATIVE) Urine Blood NEGATIVE (0-5) Vasquez/ul Urine Nitrite NEGATIVE (NEGATIVE) Urine Bilirubin NEGATIVE (NEGATIVE) Urine Urobilinogen NEGATIVE (0-1) mg/dL Ur Leukocyte Esterase NEGATIVE (NEGATIVE) Urine WBC (Auto) NONE (0-5) /HPF Urine RBC (Auto) 0-2 (0-2) /HPF U Epithel Cells (Auto) RARE (FEW) /HPF Urine Bacteria (Auto) RARE (NEGATIVE) /HPF Urine Mucus (Auto) SLIGHT (NEGATIVE) /HPF Urine Culture Reflexed NO (NO) Urine Glucose NEGATIVE (NEGATIVE) mg/dL - Progress Progress: improved, re-examined Progress Note: 12/17/19 09:37 CAT scan of the abdomen and pelvis reveals a new hypoattenuated area/lesion ri ght lobe of liver. This was discussed with the patient at the time of discharge. She is to follow-up with her primary care to further address this. Counseled pt/family regarding: lab results, diagnosis, need for follow-up, rad results - Departure Departure Disposition: Home Clinical Impression: Diarrhea Condition: Stable Critical Care Time: No Referrals: [facility] [Primary Care Provider] - Additional Instructions: Drink plenty of fluids. Follow-up with your primary care physician for further evaluation and management of the liver finding as discussed. Take your medication as prescribed.
[2019-12-17] MEDS ORDERED: Zofran 4 MG/2 ML VIAL IV ONE (08:09)
[2019-12-17] MEDS ORDERED: Sodium Chloride 0.9% 1000 ML 1,000 ML IV STA (08:09)
[2019-12-17] MEDS ORDERED: Sodium Chloride 0.9% 1000 ML 1,000 ML ONE (08:25)
[2019-12-17] MEDS ORDERED: Zofran 4 MG/2 ML VIAL ONE (08:25)
[2019-12-17 08:33] LABS: Absolute Neutrophil Ct (ANC) 5.96 (1.4-6.9); BASOPHIL % 0.4 % (0.0-0.4); Basophil (Absolute #) 0.04 (0-0.4); Eosinophil % 1.3 % (0.00-5.0); Eosinophil (Absolute #) 0.12 (0-0.5); Hematocrit 48.2 % (35-47); Hemoglobin 15.1 gm/dl (12.0-16.0); Lymphocyte (Absolute #) 2.43 (1.0-4.6); Lymphocytes % 26.5 % (24.0-44.0); Mean Cell Volume 83.4 fl (78-100); Mean Corpuscular Hemoglobin 26.1 pg (26-32); Mean Corpuscular Hgb Concent. 31.3 g/dl (32-36); Mean Platelet Volume 9.4 fl (7.5-11.0); Monocyte (Absolute #) 0.62 (0.0-1.3); Monocytes % 6.8 % (0.0-12.0); Platelet Count 454 K/mm3 (150-450); Red Blood Count 5.78 M/mm3 (4.1-5.4); Red Cell Distribution Width 16.8 % (11.5-14.0); White Blood Count 9.2 K/mm3 (4.0-10.5)
[2019-12-17 08:34] LABS: Appearance SLIGHTLY CLOUDY (CLEAR); Bilirubin NEGATIVE (NEGATIVE); Blood NEGATIVE Ery/ul (0-5); Epithelial Cells RARE /HPF (FEW); Glucose NEGATIVE (NEGATIVE); Ketones NEGATIVE (NEGATIVE); Leukocyte Esterase NEGATIVE (NEGATIVE); Mucus SLIGHT /HPF (NEGATIVE); Nitrite NEGATIVE (NEGATIVE); Protein,Urine Dip NEGATIVE (Negative); RBC 0-2 /HPF (0-2); Specific Gravity 1.017 (1.005-1.025); Urobilinogen NEGATIVE mg/dL (0-1)
[2019-12-17 08:38] LABS: Bacteria RARE /HPF (NEGATIVE)
--- NOTE | 2019-12-17 09:04 | XRAY ---
Indication: Abdomen pain, cramping, and constipation. Multiple contiguous axial images obtained through the abdomen and pelvis without contrast as ordered. Comparison: February 10, 2015. Lung bases again demonstrates minimal left base fibrosis/scarring. No infiltrate or effusion. Heart is not enlarged. Noncontrasted stomach and bowel loops remain nonobstructed. Appendix continues to demonstrate tiny appendicolith today without appendicitis. There is little scattered colonic fecal debris. Again hysterectomy. No free fluid/air. Liver now demonstrates patchy hypoattenuations predominantly in the right lobe that warrants additional imaging. Remaining gallbladder, pancreas, spleen, adrenal glands, kidneys, ureters, and bladder are unremarkable for noncontrast exam. Again minimal aortic calcifications without AAA. Osseous structures remain intact again with minimal thoracolumbar double curvature scoliosis. No ventral or inguinal hernias. Impression: 1. New hepatic hypoattenuations predominantly in right lobe. CT with contrast exam with special attention to the liver is recommended. 2. Again appendicolith. Today no evidence for appendicitis.
[2019-12-17 09:23] LABS: ALBUMIN 4.2 g/dL (3.5-5.0); ALKALINE PHOSPHATASE 73 U/L (38-126); AMYLASE 38 U/L (30-110); ANION GAP 9.4 MEQ/L (5-15); BLOOD UREA NITROGEN 10 mg/dL (7-17); CHLORIDE 100 mmol/L (98-107); Calcium 8.7 mg/dL (8.4-10.2); Carbon Dioxide 29 mmol/L (22-30); Creatinine 1 0.95 mg/dL (0.52-1.04); EST GLOMERULAR FILTRATION RATE > 60.0 ML/MIN; Glucose 121 mg/dL (74-106); LIPASE 72 U/L (23-300); Potassium 3.4 mmol/L (3.5-5.1); SGOT/AST 32 U/L (14-36); SGPT/ALT 27 U/L (0-35); SODIUM 136 mmol/L (137-145); Total Protein 7.2 g/dL (6.3-8.2)
[2019-12-17 09:52] VITALS: BP 110/68; PULSE 57; O2SAT 100
== END 2019-12-17 09:57 | disposition home or self-care (01) ==
LOC: ED 07:47
DX: R19.7 Diarrhea, unspecified (principal)
CPT/HCPCS: 36000; 36415; 74176; 80053; 81001; 82150; 83605; 83690; 85025; 96360; 96374; 99284; J2405

== ENCOUNTER 2020-10-05 17:46 | Emergency (ER) | payer OTHER ==
[2020-10-05 18:18] VITALS: BP 120/68; PULSE 74; O2SAT 99
--- NOTE | 2020-10-05 18:23 | ERPHSYRPT ---
- History of Present Illness Time Seen by Provider: 10/05/20 18:23 Source: patient Exam Limitations: no limitations Patient Subjective Stated Complaint: Pt states "I stepped in a hole about a week ago and my right shoulder, both my palm and my right ankle hurt." Triage Nursing Assessment: Pt presented alert and oriented X 3, skin pwd Pt ambulates with an upright steady gait, able to speak in clear full sentences. Pt right ankle swollen and bruised, bilat palm bruised, right shoulder tender to touch. Occurred: last week Reason for Fall: lost balance, tripped Injuries/Pain Location: upper extremity (right shoulder), lower extremity (right ankle) Loss of Consciousness: no loss of consciousness Allergies/Adverse Reactions: No Known Drug Allergies Allergy (Verified 12/17/19 08:01) Home Medications: Buspirone HCl [Buspar] 60 mg PO BID 03/17/16 [History] Topiramate 100 mg [Topamax 100 MG] 100 mg DAILY 02/10/18 [History] clonazePAM [Klonopin] 0.5 mg DAILY 02/10/18 [History] Lansoprazole [Prevacid] 15 mg PO BID 05/22/18 [History] Hx Tetanus, Diphtheria Vaccination/Date Given: Yes Hx Influenza Vaccination/Date Given: Yes Hx Pneumococcal Vaccination/Date Given: Yes Immunizations Up to Date: Yes Travel Risk - International Travel Have you traveled outside of the country in past 3 weeks: No - Coronavirus Screening Are you exhibiting any of the following symptoms?: No Close contact with a COVID-19 positive Pt in past 14-21 Days: No - Vaccine Status Have you recieved a Covid-19 vaccination: Yes 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 - Vaccination Dates Date of 2cond Vaccination (if applicable): 04/2020 - Review of Systems Constitutional: No Symptoms Eyes: No Symptoms Ears, Nose, & Throat: No Symptoms Respiratory: No Symptoms Cardiac: No Symptoms Abdominal/Gastrointestinal: No Symptoms Genitourinary Symptoms: No Symptoms Musculoskeletal: No Symptoms Skin: No Symptoms Neurological: No Symptoms Psychological: No Symptoms Endocrine: No Symptoms Hematologic/Lymphatic: No Symptoms Immunological/Allergic: No Symptoms All Other Systems: Reviewed and Negative - Past Medical History Pertinent Past Medical History: Yes Neurological History: Other ENT History: No Pertinent History Cardiac History: Hypertension Respiratory History: No Pertinent History Endocrine Medical History: No Pertinent History Musculoskeletal History: Fibromyalgia, Rheumatoid Arthritis, Other GI Medical History: GERD History: No Pertinent History Psycho-Social History: Anxiety, Depression Female Reproductive Disorders: No Pertinent History Other Medical History: chronic back pain - Past Surgical History Past Surgical History: Yes Neuro Surgical History: No Pertinent History Cardiac: No Pertinent History Respiratory: No Pertinent History Gastrointestinal: No Pertinent History Genitourinary: No Pertinent History Musculoskeletal: Orthopedic Surgery Female Surgical History: Hysterectomy Other Surgical History: bilat reconst hand surgery. partial hysterectomy, uterus removed - Social History Smoking Status: Never smoker Exposure to second hand smoke: Yes Drug Use: none Patient Lives Alone: No - Female History Hx Last Menstrual Period: partial hysterectomy Hx Now: No - Nursing Vital Signs Nursing Vital Signs: Initial Vital Signs Temperature 97.7 F 10/05/20 18:12 Pulse Rate 74 10/05/20 18:12 Respiratory Rate 20 10/05/20 18:12 Blood Pressure 120/68 10/05/20 18:12 O2 Sat by Pulse Oximetry 99 10/05/20 18:12 Pain Scale Pain Intensity 9 - Bobo Coma Score Best Eye Response ([place]): (4) open spontaneously Best Verbal Response (Bobo): (5) oriented Best Motor Response ([place]): (6) obeys commands [place] Total: 15 - Physical Exam General Appearance: no apparent distress Head Injury: no evidence of injury Eye Exam: PERRL/EOMI ENT Exam: airway nml Neck Exam: supple Respiratory/Chest Exam: normal breath sounds Cardiovascular Exam: normal heart sounds Gastrointestinal Exam: soft Back Exam: normal inspection Extremity Exam: limited range of motion, tenderness (right shoulder and ankle) Neurologic Exam: alert, oriented x 3 Skin Exam: normal color SpO2 Interpretation: normal SpO2: 99 O2 Delivery: Room Air Procedures - Splinting Location of Splint: Right, Ankle Type of Splint: Walking Boot/Shoe Splint Applied By: ED Nurse Pre-Proc Neuro Vasc Exam: normal Post-Proc Neuro Vasc Exam: neurovascular intact, unchanged from pre-exam - Course Nursing assessment & vital signs reviewed: Yes Ordered Tests: Medication Summary Discontinued Medications Generic Name Dose Route Start Last Admin Trade Name Freq PRN Reason Stop Dose Admin Hydrocodone Bitart/Acetaminophen 1 tablet 10/05/20 21:28 Hydrocodone-Acetamin 10-325 Mg PO 10/05/20 21:29 .STK-MED ONE - Progress Progress: improved Progress Note: F/U with ortho. 10/11/20 15:25 Counseled pt/family regarding: diagnosis, need for follow-up, rad results - Departure Departure Disposition: Home Clinical Impression: Ankle fracture, right Qualifiers: Encounter type: initial encounter Fracture type: closed Qualified Code(s): S82.891A - Other fracture of right lower leg, initial encounter for closed fracture Sprain of shoulder, right Qualifiers: Encounter type: initial encounter Shoulder sprain type: unspecified sprain Qualified Code(s): S43.401A - Unspecified sprain of right shoulder joint, initial encounter Condition: Stable Critical Care Time: No Referrals: [facility]OS[facility] [Primary Care Provider] - Additional Instructions: See ortho
[2020-10-05] MEDS ORDERED: HYDROCODONE-ACETAMIN 10-325 MG PO ONE (21:28)
--- NOTE | 2020-10-06 09:18 | XRAY ---
Indication: Pain following fall one week ago. Comparison: None 3 view right shoulder obtained. No bony, articular, or soft tissue abnormalities.
--- NOTE | 2020-10-06 09:18 | XRAY ---
Indication: Pain following fall one week ago. Comparison: None 3 view right ankle demonstrates mild soft tissue swelling and 7-8mm medial malleolus tip ossification possible fracture in the right clinical setting. Small plantar heel spur. No other bony, articular, or soft tissue abnormalities.
--- NOTE | 2020-10-06 09:27 | XRAY ---
Indication: Pain following fall one week ago. Comparison: None 3 view left hand demonstrates mild 1st metacarpal multangular degenerative changes. No other bony, articular, or soft tissue abnormalities.
== END 2020-10-06 07:41 | disposition home or self-care (01) ==
LOC: ED 17:46
DX: S82.891A Other fracture of right lower leg, initial encounter for closed fracture (principal); S43.401A Unspecified sprain of right shoulder joint, initial encounter; M25.571 Pain in right ankle and joints of right foot; M25.511 Pain in right shoulder; M79.642 Pain in left hand; M79.641 Pain in right hand; Z79.899 Other long term (current) drug therapy
CPT/HCPCS: 73030; 73130; 73610; 99283; L4386; A9270-GY

== ENCOUNTER 2021-02-05 18:22 | Emergency (ER) | payer OTHER ==
[2021-02-05 18:47] VITALS: BP 138/87; PULSE 61; O2SAT 100
--- NOTE | 2021-02-05 19:10 | ERPHSYRPT ---
- History of Present Illness Source: patient Exam Limitations: no limitations Patient Subjective Stated Complaint: PT states "I tripped and fell on frozen ground by stepping in a hole and hurt my toes on both feet, right ankle, left shoulder and both hands." Triage Nursing Assessment: PT presented alert and oriented X 3, skin pwd. Pt ambulates with a slow gait, able to speak in clear full sentences. PT in no apparent respiratory distress. Physician History: 50 yo wf fell in daughter's yard 2 days ago after stepping in a hole. Pt denies LOC but complain of FOSTER/cervical pain/L shoulder pain/R ankle pain/L 3rd-4th toe pain. Occurred: days ago (2 days ago) Reason for Fall: tripped, fell from standing pos Injuries/Pain Location: head, neck Loss of Consciousness: no loss of consciousness Quality: aching Severity of Pain-Max: moderate Severity of Pain-Current: moderate Modifying Factors: Improves With: movement Associated Symptoms (Fall): extremity injury, headache, neck pain, No abdominal pain, No back pain, No confusion, No chest pain, No dizziness, No lightheadedness, No muscle spasms, No nausea, No ringing in ears, No seizures, No shortness of breath, No slurred speech, No trouble walking, No vomiting Allergies/Adverse Reactions: No Known Drug Allergies Allergy (Verified 12/17/19 08:01) Home Medications: Buspirone HCl [Buspar] 60 mg PO BID 03/17/16 [History] Topiramate 100 mg [Topamax 100 MG] 100 mg DAILY 02/10/18 [History] clonazePAM [Klonopin] 1 mg PO AC 02/10/18 [History] Lansoprazole [Prevacid] 15 mg PO BID 05/22/18 [History] Duloxetine HCl 30 mg [Cymbalta 30 MG Capsule] 60 mg PO AC 02/05/21 [History] clonazePAM [Clonazepam] 0.5 mg PO HS 02/05/21 [History] Hx Tetanus, Diphtheria Vaccination/Date Given: Yes Hx Influenza Vaccination/Date Given: Yes Hx Pneumococcal Vaccination/Date Given: Yes Immunizations Up to Date: Yes Travel Risk - International Travel Have you traveled outside of the country in past 3 weeks: No - Coronavirus Screening Are you exhibiting any of the following symptoms?: No Close contact with a COVID-19 positive Pt in past 14-21 Days: No - Vaccine Status Have you recieved a Covid-19 vaccination: Yes 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 - Vaccination Dates Date of 2cond Vaccination (if applicable): 04/2020 - Review of Systems Constitutional: No Symptoms Eyes: No Symptoms Ears, Nose, & Throat: No Symptoms Respiratory: No Symptoms Cardiac: No Symptoms Abdominal/Gastrointestinal: No Symptoms Genitourinary Symptoms: No Symptoms Musculoskeletal: No Symptoms, Neck Pain Skin: No Symptoms Neurological: No Symptoms Psychological: No Symptoms Endocrine: No Symptoms Hematologic/Lymphatic: No Symptoms Immunological/Allergic: No Symptoms - Past Medical History Pertinent Past Medical History: Yes Neurological History: Other ENT History: No Pertinent History Cardiac History: Hypertension Respiratory History: No Pertinent History Endocrine Medical History: No Pertinent History Musculoskeletal History: Fibromyalgia, Rheumatoid Arthritis, Other GI Medical History: GERD History: No Pertinent History Psycho-Social History: Anxiety, Depression Female Reproductive Disorders: No Pertinent History Other Medical History: chronic back pain - Past Surgical History Past Surgical History: Yes Neuro Surgical History: No Pertinent History Cardiac: No Pertinent History Respiratory: No Pertinent History Gastrointestinal: No Pertinent History Genitourinary: No Pertinent History Musculoskeletal: Orthopedic Surgery Female Surgical History: Hysterectomy Other Surgical History: bilat reconst hand surgery. partial hysterectomy, uterus removed - Social History Smoking Status: Never smoker Exposure to second hand smoke: Yes Drug Use: none Patient Lives Alone: No Significant Family History: no pertinent family hx - Female History Hx Last Menstrual Period: hysterectomy Hx Now: No - Nursing Vital Signs Nursing Vital Signs: Initial Vital Signs Temperature 97.7 F 02/05/21 18:43 Pulse Rate 61 02/05/21 18:43 Respiratory Rate 20 02/05/21 18:43 Blood Pressure 138/87 02/05/21 18:43 O2 Sat by Pulse Oximetry 100 02/05/21 18:43 Pain Scale Pain Intensity 5 WNL - Bobo Coma Score Best Eye Response ([place]): (4) open spontaneously Best Verbal Response ([place]): (5) oriented Best Motor Response ([place]): (6) obeys commands [place] Total: 15 - Physical Exam General Appearance: no apparent distress Head Injury: tenderness (Diffuse mild TTP/Complains of FOSTER) Eye Exam: PERRL/EOMI, eyes nml inspection ENT Exam: airway nml, No evidence of ENT injury, No clear fluid (ears), No clear fluid (nose) Neck Exam: supple, trachea midline, tenderness (C-spine TTP) Respiratory/Chest Exam: normal breath sounds, No respiratory distress Cardiovascular Exam: normal heart sounds, regular rate/rhythm, No murmur Gastrointestinal Exam: soft, normal bowel sounds, No tenderness Back Exam: normal inspection (No new T/L-spine TTP) Extremity Exam: pelvis stable, other (L shoulder TTP/R ankle TTP/L 3rd-4th toes ttp) Peripheral Pulses: carotid (R): 2+, carotid (L): 2+ Neurologic Exam: alert, oriented x 3, cooperative, window maker II-XII nml as tested, normal mood/affect, sensation nml Skin Exam: normal color, warm SpO2 Interpretation: normal SpO2: 100 O2 Delivery: Room Air - Radiology Exams Shoulder X-ray Interpretation: Reviewed by me (L shoulder neg per ER read) Ankle X-ray Interpretation: Interpreted by me (R ankle neg for fx) Foot X-ray Interpretation: Interpreted by me (L foot neg for fx) - CT Exams Head CT Interpretation: Discussed w/radiologist (NAD) Cervical Spine CT Interpretation: Discussed w/radiologist (No Fx) Ordered Tests: Active Orders 24 hr Category Date Time Status Kevon Bandage Application -[facility] STAT Care 02/05/21 20:32 Completed CERVICAL SPINE WO CONTRAST [CT] Stat Exams 02/05/21 19:03 Taken HEAD WITHOUT CONTRAST [CT] Stat Exams 02/05/21 19:03 Taken Medication Summary Discontinued Medications Generic Name Dose Route Start Last Admin Trade Name Bernie PRN Reason Stop Dose Admin Ketorolac Tromethamine 30 mg 02/05/21 20:31 02/05/21 21:40 Ketorolac Tromethamine 30 Mg/Ml Inj IM 02/05/21 20:32 30 mg STAT ONE Administration Ketorolac Tromethamine Confirm 02/05/21 21:39 Ketorolac Tromethamine 30 Mg/Ml Inj Administered 02/05/21 21:40 Dose 30 mg .ROUTE .STK-MED ONE - Progress Progress: improved Progress Note: 02/05/21 20:36 30mg IM Toradol Kevon wrap R ankle per nursing/NVI Counseled pt/family regarding: diagnosis, need for follow-up, rad results - Departure Departure Disposition: Home Clinical Impression: Minor head injury, Cervical strain, Contusion of shoulder, left, Right ankle sprain, Contusion of left foot Condition: Stable Critical Care Time: No Referrals: [facility] [Primary Care Provider] - Follow up/PCP as directed Instructions: Ankle Sprain (DC), Contusion (DC), Rotator Cuff Injury (DC), Preventing Falls, Minor Head Injury (DC), Cervical Muscle Strain (DC), Shoulder Pain (DC), Foot Sprain (DC) Additional Instructions: Continue current meds at home Follow up with your family MD in 1-2 days Weight bearing as tolerated Kevon wrap left ankle for 2-3 days Return to ER as needed
[2021-02-05] MEDS ORDERED: TORAdol 30 mg Injection ONE (21:39)
[2021-02-05] MEDS: TORAdol 30 mg Injection IM ONE (21:40)
--- NOTE | 2021-02-06 08:46 | XRAY ---
Indication: Pain following fall. Multiple contiguous axial images obtained through the head without contrast. Comparison: May 22, 2018. Normal appearing brain parenchyma, ventricles, and bony calvarium for patient's age. Visualized paranasal sinuses and mastoid air cells are clear. Impression: Continued normal CT head without contrast exam.
--- NOTE | 2021-02-06 08:48 | XRAY ---
Indication: Pain following fall. Comparison: None 3 view left shoulder obtained. No bony, articular, or soft tissue abnormalities.
--- NOTE | 2021-02-06 08:48 | XRAY ---
Indication: Pain following fall. Comparison: None 3 view right ankle demonstrates small plantar heel spur. No other bony, articular, or soft tissue abnormalities.
--- NOTE | 2021-02-06 08:48 | XRAY ---
Indication: Pain following fall. Multiple contiguous axial images obtained through the cervical spine. Sagittal and coronal reformatted images obtained. Comparison: None. Axial images negative for acute fracture, suspicious bony lesions, or spinal canal stenosis. Sagittal and coronal reformatted images demonstrates lordotic reversal, positional versus paraspinal spasm. Minimal C5-C6 disc space narrowing. No acute compression fracture, subluxation, or jumped facet. Normal appearing craniocervical junction. Visualized noncontrasted soft tissues are unremarkable. Impression: 1. Cervical lordotic reversal, positional versus paraspinal spasm. 2. Minimal C5-C6 degenerative disc space narrowing. 3. Remaining CT cervical spine is negative.
--- NOTE | 2021-02-06 08:51 | XRAY ---
Indication: Pain following fall. Comparison: None 3 view left ankle demonstrates small plantar heel spur. No other bony, articular, or soft tissue abnormalities.
--- NOTE | 2021-02-06 08:51 | XRAY ---
Indication: Pain following fall. Comparison: None 3 nonweightbearing views of the left foot demonstrates small plantar heel spur, mild degenerative changes 3d MTP, and tiny cuboid bone island. No other bony, articular, or soft tissue abnormalities.
== END 2021-02-05 22:00 | disposition home or self-care (01) ==
LOC: ED 18:22
DX: S09.90XA Unspecified injury of head, initial encounter (principal); S16.1XXA Strain of muscle, fascia and tendon at neck level, initial encounter; S93.401A Sprain of unspecified ligament of right ankle, initial encounter; S40.012A Contusion of left shoulder, initial encounter; S90.32XA Contusion of left foot, initial encounter; W18.42XA Slipping, tripping and stumbling without falling due to stepping into hole or opening, initial encounter; Y92.007 Garden or yard of unspecified non-institutional (private) residence as the place of occurrence of the external cause; I10 Essential (primary) hypertension
CPT/HCPCS: 70450; 72125; 73030; 73610; 73630; 96372; 99284; J1885

== ENCOUNTER 2021-04-02 13:06 | Emergency (ER) | payer OTHER ==
[2021-04-02] MEDS ORDERED: Sodium Chloride 0.9% 1000 ML 1,000 ML IV SCH (13:30)
[2021-04-02] MEDS ORDERED: Sodium Chloride 0.9% 1000 ML 1,000 ML ONE (14:26)
[2021-04-02 14:28] LABS: Absolute Neutrophil Ct (ANC) 8.34 (1.4-6.9); Basophil (Absolute #) 0.03 (0-0.4); Eosinophil % 1.5 % (0.00-5.0); Eosinophil (Absolute #) 0.16 (0-0.5); Hematocrit 36.9 % (35-47); Hemoglobin 12.1 gm/dl (12.0-16.0); Lymphocyte (Absolute #) 1.42 (1.0-4.6); Lymphocytes % 13.1 % (24.0-44.0); Mean Cell Volume 83.3 fl (78-100); Mean Corpuscular Hemoglobin 27.3 pg (26-32); Mean Corpuscular Hgb Concent. 32.8 g/dl (32-36); Mean Platelet Volume 8.7 fl (7.5-11.0); Monocyte (Absolute #) 0.87 (0.0-1.3); Neutrophil % 77.1 % (36.0-66.0); Platelet Count 432 K/mm3 (150-450); Red Blood Count 4.43 M/mm3 (4.1-5.4); Red Cell Distribution Width 15.1 % (11.5-14.0); White Blood Count 10.8 K/mm3 (4.0-10.5)
[2021-04-02 14:36] LABS: ALBUMIN 2.9 g/dL (3.5-5.0); ALKALINE PHOSPHATASE 71 U/L (38-126); ANION GAP 10.2 MEQ/L (5-15); BLOOD UREA NITROGEN 11 mg/dL (7-17); CHLORIDE 101 mmol/L (98-107); Calcium 7.6 mg/dL (8.4-10.2); Carbon Dioxide 27 mmol/L (22-30); Creatinine 1 0.74 mg/dL (0.52-1.04); EST GLOMERULAR FILTRATION RATE > 60.0 ML/MIN; Glucose 96 mg/dL (74-106); Potassium 3.8 mmol/L (3.5-5.1); SGOT/AST 103 U/L (14-36); SGPT/ALT 42 U/L (0-35); SODIUM 134 mmol/L (137-145); Total Protein 5.9 g/dL (6.3-8.2)
[2021-04-02 14:48] LABS: Appearance SLIGHTLY CLOUDY (CLEAR); Bacteria RARE /HPF (NEGATIVE); Bilirubin NEGATIVE (NEGATIVE); Blood NEGATIVE Ery/ul (0-5); Epithelial Cells FEW /HPF (FEW); Glucose NEGATIVE (NEGATIVE); Ketones MODERATE (NEGATIVE); Leukocyte Esterase SMALL (NEGATIVE); Mucus SLIGHT /HPF (NEGATIVE); Nitrite NEGATIVE (NEGATIVE); Protein,Urine Dip NEGATIVE (Negative); RBC 0-2 /HPF (0-2); Specific Gravity 1.019 (1.005-1.025); Urobilinogen 2 mg/dL (0-1)
[2021-04-02] MEDS ORDERED: Calcium Gluconate 10% 1000 MG IV ONE ×2 (15:41→16:20)
[2021-04-02] MEDS ORDERED: MORPHINE SULFATE 4 MG INJ IV ONE (15:48)
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
[2021-04-02] MEDS ORDERED: MORPHINE SULFATE 4 MG INJ ONE (16:20)
[2021-04-02 16:38] VITALS: O2SAT 98
[2021-04-02] MEDS ORDERED: ROCEPHIN 1 Gm-D5w 50 ml Bag** 1 G/50 ML IVPB IV ONE (17:32)
[2021-04-02 18:24] VITALS: BP 107/70; PULSE 74
[2021-04-03] MEDS ORDERED: ROCEPHIN 1 Gm-D5w 50 ml Bag** 1 G/50 ML IVPB IV SCH (10:00)
== END 2021-04-02 18:33 | disposition home or self-care (01) ==
LOC: ED 13:06
DX: G89.18 Other acute postprocedural pain (principal); I95.1 Orthostatic hypotension; N39.0 Urinary tract infection, site not specified; E83.51 Hypocalcemia; I10 Essential (primary) hypertension; M54.89 Other dorsalgia; G89.29 Other chronic pain; Z79.899 Other long term (current) drug therapy
CPT/HCPCS: 36415; 80053; 81001; 84484; 85025; 93005; 93041; 94760; 96365; 96374; 96375; 99285; J0610; J0696; J2270

== ENCOUNTER 2021-12-10 19:15 | Emergency (ER) | payer OTHER ==
--- NOTE | 2021-12-10 20:45 | ERPHSYRPT ---
- History of Present Illness Time Seen by Provider: 12/10/21 20:45 Source: patient, family Exam Limitations: no limitations Allergies/Adverse Reactions: No Known Drug Allergies Allergy (Verified 12/10/21 20:48) Home Medications: Buspirone HCl [Buspar] 60 mg PO BID 03/17/16 [History] Topiramate 100 mg [Topamax 100 MG] 100 mg DAILY 02/10/18 [History] clonazePAM [Klonopin] 1 mg PO AC 02/10/18 [History] Lansoprazole [Prevacid] 15 mg PO BID 05/22/18 [History] Duloxetine HCl 30 mg [Cymbalta 30 MG Capsule] 60 mg PO AC 02/05/21 [History] clonazePAM [Clonazepam] 0.5 mg PO HS 02/05/21 [History] Hx Tetanus, Diphtheria Vaccination/Date Given: Yes Hx Influenza Vaccination/Date Given: Yes Hx Pneumococcal Vaccination/Date Given: Yes Travel Risk - Vaccine Status Have you recieved a Covid-19 vaccination: Yes Juvenile Counselor: Moderna - Vaccination Dates Date of 2cond Vaccination (if applicable): 04/2020 - Past Medical History Pertinent Past Medical History: Yes Neurological History: Other ENT History: No Pertinent History Cardiac History: Hypertension Respiratory History: No Pertinent History Endocrine Medical History: No Pertinent History Musculoskeletal History: Fibromyalgia, Rheumatoid Arthritis, Other GI Medical History: GERD History: No Pertinent History Psycho-Social History: Anxiety, Depression Female Reproductive Disorders: No Pertinent History Other Medical History: chronic back pain - Past Surgical History Past Surgical History: Yes Neuro Surgical History: No Pertinent History Cardiac: No Pertinent History Respiratory: No Pertinent History Gastrointestinal: No Pertinent History Genitourinary: No Pertinent History Musculoskeletal: Orthopedic Surgery Female Surgical History: Hysterectomy Other Surgical History: bilat reconst hand surgery. partial hysterectomy, uterus removed - Social History Smoking Status: Never smoker Exposure to second hand smoke: Yes Drug Use: none Patient Lives Alone: No Significant Family History: no pertinent family hx - Nursing Vital Signs Nursing Vital Signs: Initial Vital Signs Temperature 97.9 F 12/10/21 20:48 Pulse Rate 65 12/10/21 20:48 Respiratory Rate 18 12/10/21 20:48 Blood Pressure 112/71 12/10/21 20:48 O2 Sat by Pulse Oximetry 95 12/10/21 20:48 Pain Scale Pain Intensity 10 Ordered Tests: Active Orders 24 hr Category Date Time Status Kevon [facility] STAT Care 12/10/21 21:56 Ordered Crutches STAT Care 12/10/21 21:56 Ordered ANKLE (2V) Stat Exams 12/10/21 20:50 Taken - Progress Progress Note: 12/10/21 21:57 X-ray right ankle question avulsion fracture lateral malleolus old versus new. No dislocation appreciated Counseled pt/family regarding: diagnosis, need for follow-up, rad results - Departure Departure Disposition: Home Clinical Impression: Avulsion fracture of right ankle Condition: Stable Critical Care Time: No Referrals: HOSPITAL,'S [Primary Care Provider] - Follow up/PCP as directed Additional Instructions: Ice bath right foot and ankle 3 times a day for the next 48 hours. Follow-up with [facility] orthopedic clinic Friday through Friday 8 AM to 10 AM. Is a walk-in clinic and you do not need an appointment. Weightbearing as tolerated. Continue using Tylenol and ibuprofen as discussed after you complete the Percocet pain medicine.
[2021-12-10] MEDS ORDERED: PERCOCET TABLET 5/325MG PO STA (22:00)
[2021-12-10] MEDS ORDERED: PERCOCET TABLET 5/325MG ONE (22:08)
[2021-12-10] MEDS: PERCOCET TABLET 5/325MG PO STA ×2 (22:18→22:19)
[2021-12-10 22:36] VITALS: BP 113/67; PULSE 67; O2SAT 97
--- NOTE | 2021-12-11 08:55 | XRAY ---
Indication: Pain following fall. Comparison: February 05, 2021 2 view right ankle demonstrates new moderate soft tissue swelling. Stable small medial malleolus heterotopic ossification and small plantar heel spur. No other bony, articular, or soft tissue abnormalities.
== END 2021-12-10 22:37 | disposition home or self-care (01) ==
LOC: ED 19:15
DX: S82.61XA Displaced fracture of lateral malleolus of right fibula, initial encounter for closed fracture (principal); W18.42XA Slipping, tripping and stumbling without falling due to stepping into hole or opening, initial encounter; M25.571 Pain in right ankle and joints of right foot; I10 Essential (primary) hypertension; Z79.899 Other long term (current) drug therapy
CPT/HCPCS: 73600; 99283; A9270-GY

== ENCOUNTER 2022-01-27 13:22 | Emergency (ER) | payer OTHER ==
[2022-01-27 13:32] VITALS: O2SAT 99
--- NOTE | 2022-01-27 13:55 | ERPHSYRPT ---
- History of Present Illness Time Seen by Provider: 01/27/22 13:54 Source: patient Exam Limitations: no limitations Patient Subjective Stated Complaint: Pt states "My grandkids live with us and one of them has rsv, the other has strep and I am having horrible drainaige." Triage Nursing Assessment: pt presented alert and orietned X 3, skin pwd. Pt ambulates with an upright steady gait, able to speak in clear full sentenecs pt eyes are red and teary, pt congested. Physician History: Pt states "My grandkids live with us and one of them has rsv, the other has strep and I am having horrible drainage." Timing/Duration: today Associated Symptoms: nasal congestion, nasal drainage Allergies/Adverse Reactions: No Known Drug Allergies Allergy (Verified 12/10/21 20:48) Home Medications: Buspirone HCl [Buspar] 60 mg PO BID 03/17/16 [History] Topiramate 100 mg [Topamax 100 MG] 100 mg DAILY 02/10/18 [History] clonazePAM [Klonopin] 1 mg PO AC 02/10/18 [History] Lansoprazole [Prevacid] 15 mg PO BID 05/22/18 [History] Duloxetine HCl 30 mg [Cymbalta 30 MG Capsule] 60 mg PO AC 02/05/21 [History] clonazePAM [Clonazepam] 0.5 mg PO HS 02/05/21 [History] Hx Tetanus, Diphtheria Vaccination/Date Given: Yes Hx Influenza Vaccination/Date Given: Yes Hx Pneumococcal Vaccination/Date Given: Yes Immunizations Up to Date: Yes Travel Risk - International Travel Have you traveled outside of the country in past 3 weeks: No - Coronavirus Screening Are you exhibiting any of the following symptoms?: Yes Symptoms: Headaches/Body Aches/Fatigue Close contact with a COVID-19 positive Pt in past 14-21 Days: No - Vaccine Status Have you recieved a Covid-19 vaccination: Yes Household Worker: Moderna - Vaccination Dates Date of 2cond Vaccination (if applicable): 04/2020 - Review of Systems Constitutional: No Fever, No Chills Eyes: No Symptoms Ears, Nose, & Throat: Nose Congestion, Nose Discharge, Sinus Drainage Respiratory: No Cough, No Dyspnea Cardiac: No Chest Pain, No Edema, No Syncope Abdominal/Gastrointestinal: No Abdominal Pain, No Nausea, No Vomiting, No Diarrhea Genitourinary Symptoms: No Dysuria Musculoskeletal: No Back Pain, No Neck Pain Skin: No Rash Neurological: No Dizziness, No Focal Weakness, No Sensory Changes Psychological: No Symptoms Endocrine: No Symptoms All Other Systems: Reviewed and Negative - Past Medical History Pertinent Past Medical History: Yes Neurological History: Other ENT History: No Pertinent History Cardiac History: Hypertension Respiratory History: No Pertinent History Endocrine Medical History: No Pertinent History Musculoskeletal History: Fibromyalgia, Rheumatoid Arthritis, Other GI Medical History: GERD History: No Pertinent History Psycho-Social History: Anxiety, Depression Female Reproductive Disorders: No Pertinent History Other Medical History: chronic back pain - Past Surgical History Past Surgical History: Yes Neuro Surgical History: No Pertinent History Cardiac: No Pertinent History Respiratory: No Pertinent History Gastrointestinal: No Pertinent History Genitourinary: No Pertinent History Musculoskeletal: Orthopedic Surgery Female Surgical History: Hysterectomy Other Surgical History: bilat reconst hand surgery. partial hysterectomy, uterus removed - Social History Smoking Status: Never smoker Exposure to second hand smoke: Yes Drug Use: none Patient Lives Alone: No Significant Family History: no pertinent family hx - Nursing Vital Signs Nursing Vital Signs: Initial Vital Signs Temperature 97.0 F 01/27/22 13:28 Pulse Rate 66 01/27/22 13:28 Respiratory Rate 20 01/27/22 13:28 Blood Pressure 131/82 01/27/22 13:28 O2 Sat by Pulse Oximetry 99 01/27/22 13:28 Pain Scale Pain Intensity 2 - Physical Exam General Appearance: no apparent distress, alert Eye Exam: PERRL/EOMI, eyes nml inspection Ears, Nose, Throat Exam: normal ENT inspection, TMs normal, pharynx normal, moist mucous membranes Neck Exam: normal inspection, non-tender, supple, full range of motion Respiratory Exam: normal breath sounds, lungs clear, No respiratory distress Cardiovascular Exam: regular rate/rhythm, normal heart sounds Gastrointestinal/Abdomen Exam: soft, No tenderness Back Exam: normal inspection, No CVA tenderness, No vertebral tenderness Extremity Exam: normal inspection, normal range of motion Neurologic Exam: alert, oriented x 3, cooperative, normal mood/affect, sensation nml, No motor deficits Skin Exam: normal color, warm, dry, No rash Lymphatic Exam: No adenopathy SpO2: 99 - Course Nursing assessment & vital signs reviewed: Yes Lab/Rad Data: Laboratory Results 01/27/22 Range/Units 13:54 Influenza Type A Ag NEGATIVE (NEGATIVE) Influenza Type B Ag NEGATIVE (NEGATIVE) RSV (PCR) NEGATIVE (Negative) SARS-CoV-2 (PCR) NEGATIVE (NEGATIVE) Group A Strep Antibody NOT DETECTED (NEGATIVE) - Progress Progress: improved Counseled pt/family regarding: lab results, diagnosis, need for follow-up - Departure Departure Disposition: Home Clinical Impression: Acute viral syndrome Condition: Stable Critical Care Time: No Referrals: [facility] [Primary Care Provider] - Follow up/PCP as directed Additional Instructions: Discharge/Care Plan JOSE LUIS TERRY was seen on 01/27/22 in the Emergency Room. The patient was counseled regarding Diagnosis,Lab results, Imaging studies, need for follow up and when to return to the Emergency Room. Prescriptions given: Discharge Note I have spoken with the patient and/or caregivers. I have explained the patient's condition, diagnosis and treatment plan based on the information available to me at this time. I have answered the patient's and/or caregiver's questions and ad dressed any concerns. The patient and/or caregivers have as good understanding of the patient's diagnosis, condition and treatment plan as can be expected at this point. The vital signs have been stable. The patient's condition is stable and appropriate for discharge from the emergency department. The patient will pursue further outpatient evaluation with the primary care physician or other designated or consulting physician as outlined in the discharge instructions. The patient and/or caregivers are agreeable to this plan of care and follow-up instructions have been explained in detail. The patient and/or caregivers have received these instruction. The patient/and or caregivers are aware that any significant change in condition or worsening of symptoms should prompt an immediate return to this or the closest emergency department or call 911. JOSE LUIS TERRY was seen on 01/27/22 n the Emergency Room. At that time you were treated for an emergent condition, during your visit Laboratory, Radiology and/or other procedures may have been ordered. It is very important that you follow-up with your Primary Care Physician [facility] within the next 24-48 hours to review your Emergency Room visit and the final results of testing that was ordered. Some test results such as Urine Cultures, Blood Cultures, and other cultures if ordered will not be finalized for 24-48 hours. If you do not have a Primary Care Provider please call the medical records department at [phone] to obtain a copy of your results or you may sign into our patient portal to obtain these results by visiting us @ [email or web address] and completing the following steps: 1. Click on the Patient Portal link 2. Click the Patient Self Enrollment Link to complete the enrollment form and entering your 3. Once the enrollment form is completed you will receive an email with a tempo [employer] ID and password at the email address you provided. 4. Next choose a user name and password. Your user name must be at least 4 characters long and your password must be at least 4 characters long. 5. Choose a security question from the list and provide your answer to the question. If you already have signed into the Health Portal you may access your Health Care Information 09/09 by the following steps: 1. Login to our website @ [email or web address] 2. Enter your original user name and password. FAQS The [facility] Portal is an online tool that contains your Lab Results, Radiology Reports, Visit History, Discharge Instructions and Health Summary Lab and Radiology Results will not be available for 72 hours on the portal. The Portal is a secure site, passwords are encryted and URLs are re-written so they cannot be copied and pasted. You and authorized family members are the only ones who can access your Portal. Also there is a timeout feature that protects your information if you leave the Portal page open. If you have technical difficulty please use the Contact Us link on the page this will allow you to submit any questions you have regarding the Portal or you may contact the Medical Record Department at [phone] ext [phone]. Prescriptions: Guaifenesin/Dextromethorphan [Mucinex Dm ER 1,200-60 mg Tab] 1 each PO BID #10 tablet
[2022-01-27 14:16] LABS: Group A Strep NOT DETECTED (NEGATIVE)
[2022-01-27 14:29] LABS: INFLUENZA A NEGATIVE (NEGATIVE); INFLUENZA B NEGATIVE (NEGATIVE); RESPIRATORY SYNCTIAL VIRUS NEGATIVE (Negative); SARS-CoV-2 Xpert Express NEGATIVE (NEGATIVE)
[2022-01-27 14:34] VITALS: BP 109/68; PULSE 58
== END 2022-01-27 14:56 | disposition home or self-care (01) ==
LOC: ED 13:22
DX: B34.9 Viral infection, unspecified (principal); R09.81 Nasal congestion; I10 Essential (primary) hypertension; Z20.828 Contact with and (suspected) exposure to other viral communicable diseases; Z79.899 Other long term (current) drug therapy
CPT/HCPCS: 0241U; 87651; 99282